=== PATIENT | female | born 2000 | race Native Hawaiian/Other Pacific Islander ===

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

== ENCOUNTER → 2020-07-10 00:01 | Outpatient (BNVA) | payer MEDICARE, MEDICAID, SELFPAY | PROVIDERS: Family Provider Pediatrics Adolescent Medicine; PCP Pediatrics Adolescent Medicine; Visit Provider Pediatrics Adolescent Medicine | DX: N39.0 Urinary tract infection, site not specified (principal); A08.4 Viral intestinal infection, unspecified; R39.89 Other symptoms and signs involving the genitourinary system | CPT/HCPCS: 80053; 81003 ==

== ENCOUNTER → 2020-08-15 15:50 | Outpatient (BNVA) | payer MEDICARE, MEDICAID, SELFPAY | PROVIDERS: Family Provider Pediatrics Adolescent Medicine; PCP Pediatrics Adolescent Medicine; Visit Provider Nurse Practitioner Women's Health | DX: E01.0 Iodine-deficiency related diffuse (endemic) goiter (principal); N92.1 Excessive and frequent menstruation with irregular cycle; N76.0 Acute vaginitis; B96.89 Other specified bacterial agents as the cause of diseases classified elsewhere; Z30.42 Encounter for surveillance of injectable contraceptive | CPT/HCPCS: 84439; 84443 ==

== ENCOUNTER → 2021-01-20 18:32 | Outpatient (BNVA) | payer MEDICARE, BC, SELFPAY | PROVIDERS: Family Provider Pediatrics Adolescent Medicine; PCP Pediatrics Adolescent Medicine; Visit Provider Nurse Practitioner Family | DX: J02.9 Acute pharyngitis, unspecified (principal) | CPT/HCPCS: 87071; 87880 ==

== ENCOUNTER → 2022-04-02 13:25 | Outpatient (BNVA) | payer MEDICARE, BC, MEDICAID, SELFPAY | PROVIDERS: Family Provider Pediatrics Adolescent Medicine; Visit Provider Nurse Practitioner Women's Health | DX: N93.9 Abnormal uterine and vaginal bleeding, unspecified (principal) | CPT/HCPCS: 81025 ==

== ENCOUNTER → 2022-09-12 12:56 | Outpatient (BNVA) | payer MEDICARE, BC, MEDICAID, SELFPAY | PROVIDERS: Family Provider Pediatrics Adolescent Medicine; Visit Provider Emergency Medicine | DX: N39.0 Urinary tract infection, site not specified (principal) | CPT/HCPCS: 81000 ==

== ENCOUNTER 2022-12-05 02:38 | Emergency (ER) | payer MEDICARE, BC, MEDICAID, SELFPAY ==
[2022-12-05 02:42] VITALS: BP 111/77; PULSE 81; RESP 18; TEMP 36.4; O2SAT 96; BMI 23.1
--- NOTE | 2022-12-05 02:43 | CTR_ITS ---
PROCEDURE INFORMATION: Exam: CT Head Without Contrast Exam date and time: 12/05/2022 2:51 AM Age: 22 years old Clinical indication: Condition or disease; Convulsions or seizures; Patient HX: Seizure prior to arrival. History of childhood seizures. TECHNIQUE: Imaging protocol: Computed tomography of the head without contrast. Radiation optimization: All CT scans at this facility use at least one of these dose optimization techniques: automated exposure control; mA and/or kV adjustment per patient size (includes targeted exams where dose is matched to clinical indication); or iterative reconstruction. Other technique: STROKE PROTOCOL was implemented. REPORTING DATA: Count of CT and Cardiac NM exams in prior 12 months: This patient has received 0 known CTs and 0 known cardiac nuclear medicine studies in the 12 months prior to the current study. COMPARISON: No relevant prior studies available. RADIATION DOSE METRICS: Total DLP (mGy-cm): 1011.78 FINDINGS: Brain: No acute intracranial hemorrhage or mass effect. No definite acute infarct by CT. MRI could be more sensitive/specific for detection, as clinically directed. Cerebral ventricles: Ventricle size is normal for age. Paranasal sinuses: Included paranasal sinuses are essentially clear. Mastoid air cells: No significant acute finding. Bones/joints: No definite acute skull fracture. Soft tissues: No significant acute finding. CT/CT head wo con* [id number] IMPRESSION: 1. No acute intracranial hemorrhage or mass effect. 2. No definite acute infarct by CT, see above. 3. Other findings discussed above. ASSESSMENT: ASPECTS (Xi Stroke Program Early CT Score) is 10.
--- NOTE | 2022-12-05 02:44 | ED_ITS ---
HPI - Seizure General: Chief Complaint: Seizure Stated Complaint: SEIZURE Time Seen by Provider: 12/05/22 02:39 Source: patient and EMS Mode of arrival: EMS Limitations: no limitations History of Present Illness: HPI Narrative: 22-year-old female history of autism mother states that she had seizures as a kid last one she had was 7 years ago she states that tonight she went to the bathroom passed out and had roughly 2 to 3-minute seizure this happened over an hour ago she is now awake and alert and her baseline she is answering my questions appropriately she denies any chest pain or headache or fever denies any vomiting or diarrhea. Associated symptoms: Deny chest pain, chills or fever(s) Review of Systems Const: Denies: fever(s), chills, body aches or change in appetite Eyes: Denies: blurry vision or eye discomfort ENMT: Denies: throat pain or dental pain Card: Denies: chest pain Resp: Denies: dyspnea GI: Denies: abdominal pain, nausea, vomiting or diarrhea : Denies: dysuria Musc: Denies: neck pain or back pain Skin/Breast: Denies: rash Neuro: Reports: seizure-like activity Psych: Denies: depression Akira/Lymph: Denies: easy bruising All/Imm: Denies: urticaria PFSH ED PFSH: Medical History Allergic rhinitis Asthma Autism Migraine No pertinent past medical history neghx: htn,dm,thyroid,dvt/pe PCP: Brad Prolonged menstruation Sleep disturbance Surgical History Hx of adenoidectomy Hx of myringotomy with tube placement x 5 Family History Other Adopted Social History Smoking and tobacco status: never smoked Physical Exam Const: COMMON NORMALS: no acute distress, patient oriented x3 and healthy appearing HENMT: COMMON NORMALS: normocephalic and atraumatic HEAD & SCALP: normocephalic and atraumatic Eye: COMMON NORMALS: Equal, round and reactive pupils present and EOMs intact bilaterally PUPIL: Yes Equal, round and reactive pupils present Neck/C-Spine: COMMON NORMALS: full ROM and supple Chest: COMMONS NORMALS: normal inspection of the chest and normal palpation of entire chest wall Resp: COMMON NORMALS: normal respiratory effort, No retractions, No use of accessory muscles and clear to auscultation bilaterally AUSCULTATION: clear to auscultation bilaterally Cardio: COMMON NORMALS: regular rate, regular rhythm and No murmurs present (Cardio) RATE: regular rate RHYTHM: regular rhythm GI: COMMON NORMALS: Normal to inspection, nondistended, normoactive bowel sounds present, Soft to palpation, non-tender and no masses PALPATION: Yes Soft to palpation Extremity: COMMON NORMALS: normal to inspection and full ROM Neuro: COMMON NORMALS: patient oriented x3, moves all extremities and no focal motor deficits Psych: COMMON NORMALS: mental status grossly normal, Normal thought process present and cooperative THOUGHT PROCESS: Normal thought process present Skin: COMMON NORMALS: no rashes or lesions noted and no wounds GENERAL SKIN EXAM: no rashes or lesions noted Course Vital Signs: Vital signs: Vital Signs Temperature 97.5 F L 12/05/22 02:42 Pulse Rate 80 12/05/22 03:47 Respiratory Rate 18 12/05/22 02:42 Blood Pressure 128/77 12/05/22 03:47 Pulse Oximetry 95 12/05/22 03:47 Oxygen Delivery Me thod 12/05/22 03:47 MDM - Seizure MDM Narrative Medical decision making narrative: Patient presents here after a fall after speaking to her father he is a different history of falling in her head and then having a short period of downtime before awakening he denies any seizure-like activity is hard to tell but likely passed out hit her head head CT here is normal blood work is normal she has been well-appearing she is stable for discharge she is to follow-up with PCP and return if worsening. Lab Data 12/05/22 02:45 12/05/22 04:00 Labs: Radiology Impressions Head CT 12/05/22 02:43 IMPRESSION: 1. No acute intracranial hemorrhage or mass effect. 2. No definite acute infarct by CT, see above. 3. Other findings discussed above. ASSESSMENT: ASPECTS (Xi Stroke Program Early CT Score) is 10. Laboratory Results WBC 15.0 10^3/uL (4.0-10.0) H 12/05/22 02:45 RBC 4.80 10^6/uL (4.1-5.3) 12/05/22 02:45 Hgb 13.9 g/dL (11.5-15.3) 12/05/22 02:45 Hct 44.0 % (37.0-47.0) 12/05/22 02:45 MCV 91.7 fl (81-99) 12/05/22 02:45 MCH 29.0 pg (28.0-34.0) 12/05/22 02:45 MCHC 31.6 g/dL (30.0-36.0) 12/05/22 02:45 RDW 12.2 % (12.1-15.1) 12/05/22 02:45 Plt Count 370 10^3/cmm (130-400) 12/05/22 02:45 MPV 9.7 fL (7.4-10.4) 12/05/22 02:45 Lymph % (Auto) Not Reportable 12/05/22 02:45 [place] % (Auto) Not Reportable 12/05/22 02:45 Lymph # (Auto) Not Reportable 12/05/22 02:45 [place] # (Auto) Not Reportable 12/05/22 02:45 Total Counted 100 (0-100) 12/05/22 02:45 Atypical Lymphs % 20.0 % (0-5) H 12/05/22 02:45 Absolute Neutrophils 7.2 10^3/cmm (1.4-6.5) H 12/05/22 02:45 Segmented Neutrophils 48 % 12/05/22 02:45 Abs Segm Neuts (Man) 7.2 10/cmm (1.6-7.1) H 12/05/22 02:45 Band Neutrophils 0.0 % 12/05/22 02:45 Abs Band Neuts (Man) 0.0 10^3/cmm (0.0-1.2) 12/05/22 02:45 Absolute Lymphocytes 7.1 10^3/cmm (1.2-3.4) H 12/05/22 02:45 Lymphocytes (Manual) 27 % 12/05/22 02:45 Monocytes (Manual) 4.0 % 12/05/22 02:45 Absolute Monocytes 0.6 10^3/cmm (0.1-0.6) 12/05/22 02:45 Eosinophils (Manual) 1 % 12/05/22 02:45 Absolute Eosinophils 0.1 10^3/cmm (0.0-0.7) 12/05/22 02:45 Basophils (Manual) 0.0 % 12/05/22 02:45 Absolute Basophils 0.0 10^3/cmm (0.0-0.2) 12/05/22 02:45 Toxic Granulation 1+ H 12/05/22 02:45 Platelet Estimate Normal (Normal) 12/05/22 02:45 Macrocytosis 1+ H 12/05/22 02:45 Sodium 139 mmol/L (136-145) 12/05/22 04:00 Potassium 4.3 mmol/L (3.5-5.1) 12/05/22 04:00 Chloride 105 mmol/L (98-107) 12/05/22 04:00 Carbon Dioxide 24 mmol/L (22-29) 12/05/22 04:00 Anion Gap 14.3 (5-19) 12/05/22 04:00 BUN 10 mg/dL (6-20) 12/05/22 04:00 Creatinine 0.9 mg/dL (0.5-0.9) 12/05/22 04:00 GFR Calculation 94.7 mL/min (90-130) 12/05/22 04:00 Glucose 115 mg/dL (65-115) 12/05/22 04:00 Calculated Osmolality 288 mOsm/kg (285-295) 12/05/22 04:00 Calcium 9.2 mg/dL (8.5-10.5) 12/05/22 04:00 Total Bilirubin 0.2 mg/dL (0.15-1.2) 12/05/22 04:00 AST 14 U/L (0-32) 12/05/22 04:00 ALT 10 U/L (0-33) 12/05/22 04:00 Alkaline Phosphatase 93 U/L (35-105) 12/05/22 04:00 Total Protein 7.2 g/dL (6.6-8.7) 12/05/22 04:00 Albumin 4.1 g/dL (3.5-5.2) 12/05/22 04:00 Globulin 3.1 g/dL (1.3-4.6) 12/05/22 04:00 HCG, Qual Negative (Negative) 12/05/22 02:45 Discharge Plan Discharge Patient Disposition: Home Clinical Impression: Fall, Closed head injury Condition: Stable Prescriptions: No Action focus factor PO [id number] 100 mg-3 mcg- 200 mcg-1 mg tablet,delayed release (DR/EC) PO medroxyprogesterone [Depo-Provera] 150 mg/mL syringe 150 mg IM .every 10-12 weeks Qty: 1 4RF clonidine HCl 0.2 mg tablet 0.2 mg PO .qhs Qty: 90 1RF Discharge Orders: Discharge ED (Routine); Ordered 12/05/22 Ordered By: Roshan Varghese Referrals: Mariola Feliciano MD [Physician] - 1-3 days Discharge Diet: Advance as tolerated Discharge Activity: Resume usual activity Patient Instructions: Head Injury (ED) Coding Level of Care Code ED Plunger Shovel Operator for Darell Triana
[2022-12-05 02:52] LABS: Hemoglobin 13.9 g/dL (11.5-15.3); Mean Corpuscular HGB Conc 31.6 g/dL (30.0-36.0); Mean Corpuscular Volume 91.7 fl (81-99); Mean Platelet Volume 9.7 fL (7.4-10.4); Platelet Count 370 10^3/cmm (130-400); Red Cell Distribution Width 12.2 % (12.1-15.1)
[2022-12-05] MEDS: levETIRAcetam 500 mg Tablet 750 MG PO (02:59)
[2022-12-05 03:09] LABS: HCG, Serum Qual Negative (Negative)
[2022-12-05 03:28] LABS: Absolute Eosinophils 0.1 10^3/cmm (0.0-0.7); Absolute Segmented Neutrophil 7.2 10/cmm (1.6-7.1); Eosinophils 1 %; Lymphocytes 27 %; Lymphocytes Absolute 7.1 10^3/cmm (1.2-3.4); Monocytes Absolute 0.6 10^3/cmm (0.1-0.6); Segmented Neutrophils 48 %; Total Cells Counted 100 (0-100)
[2022-12-05 03:29] LABS: Absolute Neutrophil 7.2 10^3/cmm (1.4-6.5); Platelet Estimate Normal (Normal); Toxic Granulation 1+
[2022-12-05 03:32] LABS: Macrocytosis 1+
[2022-12-05 03:47] VITALS: BP 128/77; PULSE 80; O2SAT 95
[2022-12-05 04:23] LABS: Alanine Aminotransferase 10 U/L (0-33); Albumin Level 4.1 g/dL (3.5-5.2); Alkaline Phosphatase 93 U/L (35-105); Anion Gap 14.3 (5-19); Aspartate Amino Transferase 14 U/L (0-32); Blood Urea Nitrogen 10 mg/dL (6-20); Calcium 9.2 mg/dL (8.5-10.5); Carbon Dioxide 24 mmol/L (22-29); Chloride 105 mmol/L (98-107); Globulin 3.1 g/dL (1.3-4.6); Glomerular Filtration Rate 94.7 mL/min (90-130); Glucose 115 mg/dL (65-115); Osmolality Calculated 288 mOsm/kg (285-295); Potassium 4.3 mmol/L (3.5-5.1); Sodium 139 mmol/L (136-145); Total Bilirubin 0.2 mg/dL (0.15-1.2); Total Protein 7.2 g/dL (6.6-8.7)
[2022-12-05 04:33] VITALS: BP 128/77; PULSE 88; RESP 16
== END 2022-12-05 04:37 | disposition home or self-care (01) ==
PROVIDERS: Emergency Provider Emergency Medicine; PCP Family Medicine
DX: S09.8XXA Other specified injuries of head, initial encounter (principal); F84.0 Autistic disorder; W18.39XA Other fall on same level, initial encounter
CPT/HCPCS: 70450; 80053; 84703; 85007; 85025; 99284

== ENCOUNTER → 2023-08-07 11:18 | Outpatient (BNVA) | payer MEDICARE, BC, MEDICAID, SELFPAY | PROVIDERS: PCP Family Medicine; Visit Provider Nurse Practitioner | DX: R39.9 Unspecified symptoms and signs involving the genitourinary system (principal) | CPT/HCPCS: 81000 ==

== ENCOUNTER → 2024-02-16 10:36 | Outpatient (BNVA) | payer MEDICARE, BC, SELFPAY | PROVIDERS: PCP Family Medicine; Visit Provider Family Medicine | DX: R30.0 Dysuria (principal); N39.3 Stress incontinence (female) (male) | CPT/HCPCS: 81000; 87086 ==

== ENCOUNTER → 2024-07-29 15:08 | Outpatient (BNVA) | payer MEDICARE, BC, MEDICAID, SELFPAY | PROVIDERS: PCP Family Medicine; Visit Provider Nurse Practitioner Women's Health | DX: R30.0 Dysuria (principal); E01.0 Iodine-deficiency related diffuse (endemic) goiter | CPT/HCPCS: 84315; 84439; 84443; 84481; 87086 ==

== ENCOUNTER → 2024-12-20 15:47 | Outpatient (BNVA) | payer MEDICARE, OTHER, SELFPAY | PROVIDERS: PCP Family Medicine; Visit Provider Family Medicine | DX: R30.0 Dysuria (principal); Z13.6 Encounter for screening for cardiovascular disorders | CPT/HCPCS: 81000; 87086 ==

== ENCOUNTER → 2024-12-22 09:16 | Outpatient (BNVA) | payer MEDICARE, OTHER, SELFPAY | PROVIDERS: PCP Family Medicine; Visit Provider Family Medicine | DX: Z13.6 Encounter for screening for cardiovascular disorders (principal) | CPT/HCPCS: 80053; 80061; 85025 ==

== ENCOUNTER 2025-04-07 13:04 | Emergency (ER) | payer MEDICARE, OTHER, MEDICAID, SELFPAY ==
--- OUTSIDE RECORDS SUMMARY | 2013-05-02 05:40 | XMS_ITS | Continuity of Care Document ---
Author Organization [facility] Address [address] [facility] [address] [place] [address] Phone Care Team Providers Care Leathersmith Name Role Phone Unavailable Unavailable Unavailable Advance Directives Directive Yes / No Effective Date File Name No Information Encounters Encounter Description Practice Location Reason(s) For Visit Diagnoses Date Provider Providers Copied on Encounter [facility], [address], [address], tel:[phone] [place] [facility] No Information 3 No Information Referring Provider: DEDRICK ALVARADO, [address] [place] [address], [address]. tel:[phone] Family History Family Member Type Diagnosis Age At Onset No Information Payers Payer name Insurance type Covered green party ID Authoriza tisree(s) [employer] [id number] Social History Type Description Quantity Date Captured Comments Sex Female Smoking Status No Information Chief Complaint And Reason For Visit No Information History Of Present Illness Encounter Date Complaint History Of Prese nt Illness No Information Instructions Date Instruction Additional Infor mation No Information Assessments Type Assessment Date No Information
--- OUTSIDE RECORDS SUMMARY | 2017-11-26 02:30 | XMS_ITS | Continuity of Care Document ---
Author Organization [facility] Address [address] [id number] [address] Phone Care Team Providers Care Delivery Clerk Name Role Phone Oumar UMERLeonardo Klaus Unavailable Unavailable Allergies, Adverse Reactions, Alerts Substance Reaction Status Criticality No Known allergies Medications Medication Instructions Dosage Effective Dates (start - stop) Status Comments ibuprofen 100 mg/5 mL oral suspension take 30 milliliter by oral route every 6 hours as needed with food for pain from oral surgery - Active Vyvanse 10 mg capsule - Active Procedures Procedure Date Intraoral Periapical First Film Intraoral Periapical Each Additional Film Intraoral Periapical Each Additional Film Intraoral Periapical Each Additional Film Intraoral Periapical Each Additional Film Comprehensive Oral Evaluatio n New Or Established Prophylaxis Adult Resin-Based Composite One Surface, Posterior Resin-Based Composite Two Surfaces, Posterior Resin-Based Composite Two Surfaces, Posterior Resin-Based Composite One Surface, Posterior Amalgam One Surface, Primary Or Permanent Surgical Removal Of Erupted Tooth Requir ing Elevat Removal Of Impacted Tooth Soft Tissue Removal Of Impacted Tooth Soft Tissue Removal Of Impacted Tooth Soft Tissue Removal Of Impacted Tooth Soft Tissue Treatment Plan Complete EDR Approval Note Oral Hygiene Instructions Caries Moderate Risk Exempt From Sealant Measure Bitewings Two Films Intraoral Periapical First Film Intraoral Periapical Each Additional Film Intraoral Periapical Each Additional Film Intraoral Periapical Each Additional Film Panoramic Film Limited Oral Evaluation Problem Focused Consultation Diagnostic Service Provided By [place] EDR Approval Note Advance Directives Directive Yes / No Effective Date File Name No Information Encounters Encounter Description Practice Location Reason(s) For Visit Diagnoses Date Provider Providers Copied on Encounter [facility], [id number], [id number], tel:[phone] [facility] Encounter for dental exam and cleaning w/o abnormal findings Oumar Enrique. [address] [place], [address], [place]. tel:[phone] Referring Provider: Klaus Munoz, [address] [place], [address]. tel:[phone] [facility], [id number], [id number], tel:[phone] [facility] Encounter for dental exam and cleaning w/o abnormal findings Oumar Enrique. [address] [place], [address], [place]. tel:[phone] Referring Provider: Klaus Munoz, [address] [place], [address]. tel:[phone] Family History Family Member Type Diagnosis Age At Onset No Information Payers Payer name Insurance type Covered alliance party ID Authorlalo minor(s) D [facility] Medicaid CI [id number] Social History Type Description Quantity Date Captured Comments Alcohol Use Details No Caffeine Use Details Unknown Tobacco Use Status No Information Smoking Status No Information Sex Female Chief Complaint And Reason For Visit No Information Reason For Referral Reason For Referral No Information History Of Present Illness Encounter Date Complaint History Of Prese nt Illness No Information Functional Status Date Functional Assessmen t No Information Instructions Date Instruction Additional Jose Davidr lyle Lifestyle education Related to D ental Examination Assessments Type Assessment Date No Information Patient Care Teams Name Effective Dates (start - stop) Status Members No Information
--- OUTSIDE RECORDS SUMMARY | 2025-04-07 13:08 | XMS_ITS | Clinical Summary ---
Author Organization [facility] Address [address] [place] [address] Care Team Providers Care Clean Up Supervisor Name Role Phone Mariola Feliciano MD Primary Care Provider Allergies Active Allergy Reactions Criticality Noted Date Comments Latex Other (See Comments) 11/25/2017 Skin blisters with latex bandaids Medications lisdexamfetamin e (VYVANSE) 40 mg Oral capsule Take 50 mg by mouth daily patient companion 1 a.m.. Active cloNIDine (CATAPRES) 0.1 mg Oral tablet Take 1 Tab by mouth daily at bedtime. 30 Tab 1 3 Active norethindrone Ac-Eth estradiol (MICROGESTIN ,) 1-20 mg-mcg tablet Take 1 Tablet by mouth daily. Active cetirizine (ZyrTEC) 10 mg tablet Take 10 mg by mouth daily. Active OLIVE LEAF EXTRACT ORAL Take by mouth 0.5 teaspoon daily . Active ascorbic acid, vitamin C, (VITAMIN C) 500 mg tablet Take 500 mg by mouth daily. Active OTHER Bioactive silver hydrosol liquid PRN one teaspoon daily PRN Immunity support . Active omega-3 fatty acids-fish oil 300-1,000 mg Capsule Take by mouth daily. Active multivitamins with minerals (HAIR,SKIN AND NAILS) Tablet Take 1 Tablet by mouth daily. Active Active Problems Problem Noted Date Diagnosed Date Recurrent otitis media of both ears 04/12/2015 Dysfunction of both eustachian tubes 04/12/2015 Migraine 05/18/2013 Spell of loss of consciousness 05/18/2013 Immunizations Immunization Administration Dates Next Due (ADACEL/BOOSTRIX)(10 YR UP) TDAP VACCINE, 0.5ML, IM 01/23/2014 (GARDASIL)(9-45 YRS) HUMAN P APILLOMAVIRUS VACCINE, TYPES 6, 11, 16, 18, QUADRIVALENT (4VHPV), 3 DOSE, IM 06/07/2014 Influenza Vaccine High Dose 65+ Yrs IM 7 Meningococcal ACWY Vaccine, Unspecified Formulat ion 03/30/2017 Social History Tobacco Use Types Packs/Day Years Used Date Smoking Tobacco: Never Smokeless Tobacco: Never Alcohol Use Standard Drinks/Week Comments No 0 (1 standard drink = 0.6 oz pur e alcohol) Comments No Sex and Gender Information Value Date Recorded Sex Assigned at Not on file Legal Sex Female 3:11 PM CDT Gender Identity Not on file Sexual Orientation Not on file Last Filed Vital Signs Vital Sign Reading Time Taken Comments Blood Pressure 120/79 11/26/2017 10:20 AM PAYROLL EXAMINER Pulse 75 11/26/2017 10:35 AM PAYROLL EXAMINER Temperature 36.7 C (98.1 F) 11/26/2017 10:20 AM PAYROLL EXAMINER Respiratory Rate 22 11/26/2017 10:35 AM PAYROLL EXAMINER Oxygen Saturation 100% 11/26/2017 10:35 AM PAYROLL EXAMINER Inhaled Oxygen Concentration - - Weight 52.6 kg (116 lb) 11/26/2017 6:36 AM PAYROLL EXAMINER Height 160 cm (5' 3 ) 11/25/2017 10:37 AM PAYROLL EXAMINER Body Mass Index 20.55 11/25/2017 10:37 AM PAYROLL EXAMINER Plan of Treatment Health Maintenance Due Date Last Done Comments HPV VACCINES (2 - 2-dose series) 12/05/2014 06/07/20 14 HEPATITIS B VACCINES (1 of 3 - 19+ 3-dose series) 11/2018 CERVICAL CANCER SCREENING 2021 HPV/Cotest (21-29) 2021 PAP SMEAR 2021 DTAP/TDAP/TD VACCINES (2 - Td or Tdap) 01/24/2024 INFLUENZA VACCINE (#1) 2024 09/21/2017 Insurance [facility] Advance Directives For more information, please contact: [phone] * Full Code (Latest Code Status on File) Date Activated Date Inactivated Comments 11/26/2017 9:48 AM 11/26/2017 1:41 PM * Full Code Date Activated Date Inactivated Comments 11/26/2017 7:03 AM 11/26/2017 9:48 AM Care Teams Clean Up Supervisor Relationship Specialty Start Date End Date Mariola Feliciano MD [address] [place] [address] [place] [id number] PCP - General Pediatrics 05/18/13
--- OUTSIDE RECORDS SUMMARY | 2025-04-07 13:08 | XMS_ITS | Data Portability ---
Author Organization [facility] [place] [facility] Address [address] [place] [address] [place] [address] Assessment Encounter Date Assessment Date Assessment LastModified by Organization Details LastModified Time 05/18/2023 05/18/2023 Discussed medication and treatment. Take medications as prescribed. Must treat all pets in the home to prevent re-infection. Instructed on good hand washing. Monitor of other family members with similar sx. Instructed to wash and cleans home and all bedding/clothing . F/U PRN with walk-in clinic. F/U with PCP to be sure sx have resolved. Patient and his mother verbalizes understanding and agreement with this plan of care. Will call with any questions or concerns. [email or web address] Not available 05/19/2023 13:00:54 08/09/2024 08/09/2024 Document scribed by Ralph Yuan, Virology Teacher. I was present during interview and exam. I have reviewed and agree with above documentation. Dr. Klaus Guaman. [email or web address] Not available 08/09/2024 16:30:44 Plan of Treatment Reminders Order Date Submit Date Provider Last Modified By Organization Details Last Modified Time Details Appointments None recorded. Lab None recorded. Referral None recorded. Procedures None recorded. Surgeries None recorded. Imaging None recorded. Medication Orders ketoconazol e 2 % topical cream 2022 023 [email or web address] [id number], [address], [place], [phone], 16:00:02 Patient TargetsNo targets recorded. Patient InstructionsNo instructions recorded. Reason for Referral None Reported. Results Created Date Observation Date Name Description Value Unit Range Abnormal Flag Note LastModifiedBy Organization Detail LastModifiedTime 07/29/20 24 07/29/2024 TSH, serum or plasm a TSH 2.35 Not Available [address], [address], 08/09/2024 16:36:05 07/29/20 24 07/29/2024 TSH, serum or plasm a free T4 1.17 Not Available [address], [address], 08/09/2024 16:36:05 07/29/20 24 07/29/2024 TSH, serum or plasm a free T3 3.3 Not Available [address], [address], 08/09/2024 16:36:05 Result Notes None recorded. Problems Name Problem SNOMED Code Status Onset Date Resolution Date Notes Provider Name and Address Organization Details Recorded Time Autism spectrum disorder 09780714 Active 2023 Brenda royal [facility] 4 16:15:58 Chronic constipation 012487167 Active 2023 Brenda royal [facility] 4 16:16:22 Depressive disorder 66398989 Active 2023 Ralph royal [facility] 4 16:31:18 Cerebral palsy 128895658 Active 2023 Ralph royal [facility] 4 16:31:18 Problem Notes None recorded. Procedures Surgical History Date Name Laterality Status Provider Name and Address Organization Details Recorded Time Adenoid Surgery completed Brenda Lang [facility] 08/09/2024 16:17:45 Imaging Results None recorded. Procedure Notes None recorded. Medical Equipment None Reported. Allergies No known drug allergies Medications Name Sig Start Date Stop Date Status Note LastModified by Organization Details LastModified Time triazolam 0.25 mg tablet TAKE 2 TABLETS BY MOUTH 1 1/2 HOURS BEFORE APPOINTME NT active Not Available Not Available No t Available cetirizine 10 mg tablet TAKE 1 TABLET BY MOUTH DAILY active Not Available Not Available No t Available fluconazole 150 mg tablet TAKE 1 TABLET BY MOUTH EVERY 3 DAYS FOR 2 DOSES. MAY REPEAT SECOND DOSE 72 HOURS AFTER FOR 1 DOSE IF SYMPTOMS PERSIST 08/09 completed Not Available Not Available Not Available metronidazo le 500 mg tablet TAKE 1 TABLET BY MOUTH TWICE DAILY 08/09 completed Not Available Not Available Not Available clonidine HCl 0.2 mg tablet TAKE 1 TABLET BY MOUTH EVERY DAY AT BEDTIME active Not Available Not Available No t Available amoxicillin 875 mg tablet TAKE 1 TABLET BY MOUTH TWICE DAILY FOR 7 DAYS 08/09 completed Not Available Not Available Not Available docusate sodium 100 mg capsule Take 1 capsule every day by oral route. active Not Available Not Available No t Available ketoconazol e 2 % topical cream APPLY TOPICALLY TO THE AFFECTED AREA EVERY DAY FOR 4 TO 6 WEEKS 08/09 completed Not Available Not Available Not Available amoxicillin 875 mg-potassiu m clavulanate 125 mg tablet TAKE 1 TABLET BY MOUTH TWICE DAILY FOR 7 DAYS 08/09 completed Not Available Not Available Not Available medroxyprog esterone 150 mg/mL intramuscul ar syringe ADMINISTE R 1 ML IN THE MUSCLE EVERY 10 TO 12 WEEKS active Not Available Not Available No t Available Vitals Date Recorded Body weight Oxygen saturation Oxygen saturation in Arterial blood by Pulse oximetry Heart rate Respiratory rate Body temperature Systolic And Diastolic Provider Name and Address Organization Details Last Updated DateTime 3 68114.7 8 g 98 % 98 % 67 /min 19 /min 97.5 [degF] 135/73 mm[Hg] NEGRITO VAUGHN [facility] 3 13:53:52 Date Recorded Body height Body mass index (BMI) Body weight Oxygen saturation Oxygen saturation in Arterial blood by Pulse oximetry Heart rate Respiratory rate Systolic And Diastolic Provider Name and Address Organization Details Last Updated DateTime 4 162.56 cm 29.2 kg/m2 65515.1 g 98 % 98 % 93 /min 18 /min 130/70 mm[Hg] Brenda Lang [facility] [place] 16:04:06 Social History None recorded. Functional Status None recorded. Mental Status None recorded. Family History Nothing Reported. Medical History No medical history recorded. Gynecological HistoryNo gynecological history recorded. Obstetrics History GPAL:G 0 P 0 0 0 0 Past Encounters Encounter ID Performer Location Encounter Start Date Encounter Closed Date Diagnosis/Indication Diagnosis SNOMED-CT Code Diagnosis ICD10 Code Diagnosis Note [id number] WILLIAM KIRK [facility] ([facility]) [address] [place] [phone] 05/18/2023 13:38:12 05/23/2023 15:28:37 Tinea pedis 2806092 B35.3 [id number] Klaus Guaman DO [facility] ([facility]) [address] [place] [address] 08/09/2024 15:41:59 08/10/2024 11:30:24 Depressive disorder 12729046 F32.A Previously on prescripti on antidepres nena, now taking OTC stress tab from [employer]. Cerebral palsy 734977765 G80.9 Health Concerns Section Related Observation LastModified by Organization Detai ls LastModified Time None Recorded Concern Status LastModified by Organization Details LastModified Time None Recorded Advance Directives Directive None Recorded Payers Insurance Date Sequence Insurance Name Policy Number Policy Bhandari Covered Member ID Bhandari Member ID Guarantor Name 09/13/2024 1 [place] [employer] [id number] [employer] 11/07/2024 2 [place] [id number] [employer] [id number] [employer] 11/07/2024 [place] - [id number] (MEDICARE) [employer] [id number] [employer] 07/04/2023 2 UNSPECIFIED REMIT PAYOR [employer] 12/23/2024 2 [facility] [id number] [employer] [id number] [employer] 12/23/2024 2 [place] [id number] [employer] [id number] [employer] Notes Date Note Type Note Provider Name and Address Organization Details Recorded Time 05/18/2023 text/html Rash/Skin LesionReported bypatient.Location:[facility] Quality:itchy;painful; red Severity:moderate; worsening Duration:has noted for 3-4 weeks Timing:abrupt Context:scratching Associated Symptoms:no fever; no cold symptoms; no nausea; no vomiting; no diarrhea; no fatigue WILLIAM KIRK [address] [place] [address], [phone], [facility] [place] 05/19/2023 13:01:04 08/09/2024 text/html Annual WellnessReported bypatient.Diet and Nutrition:healthy diet Fracture Risk:no history of fractures; no recent explained fracture; no sudden unexplained fractures; no previous musculoskeletal injuries Physical Activity:exercises on a regular basis; recent increase in physical activity; good physical condition Additional Lifestyle Factors:no tobacco use; no alcohol intake Depression Risk:never feels sad, empty, or tearful; no loss of interest in activities; no significant changes in weight; no sleep disturbances or insomnia; no agitation; no loss of energy; no feelings of worthlessness or guilt; no thoughts of suicide; no history of depression; no history of mood disorders Hearing:no loss of hearing Vision:no vision problems; wears corrective lenses Pt presents to establish care, previous PCP was Dr. Salinas. She is here today with her adoptive mother, was born to biological mother who was a Heroin and LSD addict. She was diagnosed with Failure to Thrive as an .She has been diagnosed with Autism, Mild Cerebral Palsy, Depression. Previous surgeries: ear tubes placed 3 or 4 times, she sees Dr. Brandon and has ears cleaned every 2 months, h/o recurrent ear infections.adenoids removed over 5 years agowisdom teeth She is currently on Depo shot for menstrual regulation/ control, just updated this at the [facility] yesterday. Her first period lasted 45 days straight, family decided preventing periods from happening would be best for her. The [facility] also recently kandy lab concerned for Goiter and checked her urine, treated for UTI, took her last dose of abx 2 nights ago. Mother unsure specific lab results.Lab per [facility] 07/29/24:TSH 2.35, Free T4 1.17, Free T3 3.3. Scheduled to see her Dentist ( mother unsure the name) next week, needing 4 fillings. Having some difficulty sleeping at night, using Melatonin and Clonidine.Previously diagnosed with Depression, has been prescribed antidepressant in the past, now taking OTC stress tab from the [employer] store each am. She cannot read. She dose know the alphabet and can write down animal names.Wearing glasses, seeing Dr. Torres and [facility] for eye care. Mother reports she has to monitor pt's food intake, she wants to eat every hour to 2 hours d/t always feels hungry Diet is a variety of foods, including fruits and vegetables.Not taking daily vitamins at this time, had been taking One A Day vitamins until she ran out.Not taking any fiber supplements, however she does take a stool softener. Current daily meds: cetirizine, clonidine, depo shot, calcium supplement, and magnesium supplement, and stool softener daily Pt participates in Bingo with others, also an art [place] on the [place] that she [place], currently on hold d/t working out payment and participation. Klaus Guaman, DO [address] [place] [address], [phone], [facility] [place] 08/09/2024 23:30:11 OBGyn Episode No OBEpisode recorded.
--- OUTSIDE RECORDS SUMMARY | 2025-04-07 13:08 | XMS_ITS | Clinical Summary ---
Author Organization [facility] Address [address] Attn: [place] [address] Care Team Providers Care Surveyor Helper Name Role Phone Mariola Feliciano MD Primary Care Provider Allergies Active Allergy Reactions Criticality Noted Date Comments Latex Other (See Comments) 11/25/2017 Skin blisters with latex bandaids Medications norethindrone Ac-Eth estradiol 1-20 mg-mcg tablet Take 1 Tablet by mouth daily. 8 Active cetirizine (ZyrTEC) 10 mg tablet Take 10 mg by mouth daily. 8 Active omega-3 fatty acids-fish oil 300-1,000 mg Capsule Take by mouth daily. 8 Active multivitamins with minerals Tablet Take 1 Tablet by mouth daily. 8 Active OLIVE LEAF EXTRACT ORAL Take by mouth 0.5 teaspoon daily . 8 Active OTHER Bioactive silver hydrosol liquid PRN one teaspoon daily PRN Immunity support . 8 Active ascorbic acid, vitamin C, (VITAMIN C) 500 mg tablet Take 500 mg by mouth daily. 8 Active Active Problems Problem Noted Date Diagnosed [...] = 0.6 oz pur e alcohol) Comments Unknown Sex and Gender Information Value Date Recorded Sex Assigned at Not on file Legal Sex Female 5:02 AM PRECIPITATION EQUIPMENT TENDER Gender Identity Not on file Sexual Orientation Not on file Last Filed Vital Signs Vital Sign Reading Time Taken Comments Blood Pressure 120/79 11/26/2017 10:20 AM PRECIPITATION EQUIPMENT TENDER Pulse 75 11/26/2017 10:35 AM PRECIPITATION EQUIPMENT TENDER Temperature 36.7 C (98.1 F) 11/26/2017 10:20 AM PRECIPITATION EQUIPMENT TENDER Respiratory Rate 22 11/26/2017 10:35 AM PRECIPITATION EQUIPMENT TENDER Oxygen Saturation - - Inhaled Oxygen Concentration - - Weight 52.6 kg (116 lb) 11/26/2017 6:36 AM PRECIPITATION EQUIPMENT TENDER Height 160 cm (5' 3 ) 11/25/2017 10:37 AM PRECIPITATION EQUIPMENT TENDER Body Mass Index 20.55 11/25/2017 10:37 AM PRECIPITATION EQUIPMENT TENDER Plan of Treatment Health Maintenance Due Date Last Done Comments HPV VACCINES (2 - 2-dose series) 12/05/2014 06/07/20 14 HEPATITIS B VACCINES (1 of 3 - 19+ 3-dose series) 11/2018 CERVICAL CANCER SCREENING 2021 HPV/Cotest (21-29) 2021 PAP SMEAR 2021 DTAP/TDAP/TD VACCINES (2 - Td or Tdap) 01/24/2024 INFLUENZA VACCINE (#1) 2025 09/21/2017 Care Teams Surveyor Helper Relationship Specialty Start Date End Date Mariola Feliciano MD [address] [place] [phone] PCP - General Pediatrics 05/18/13
[2025-04-07 13:09] VITALS: BP 130/93; PULSE 110; RESP 16; TEMP 36.3; O2SAT 96
--- NOTE | 2025-04-07 14:46 | ED_ITS ---
HPI - Neck Pain/Injury General: Chief Complaint: Neck Pain/Injury Stated Complaint: neck pain Time Seen by Provider: 04/07/25 14:13 History of Present Illness: 25-year-old female presents emergency ro om with her guardian complaining of right-sided neck pain that she woke up with this morning. She is complaining of stiffness in the neck there is no radiation of pain into the arm. No history of trauma. Patient states that she thinks she just slept on it wrong. No previous neck surgery or injuries Related Data Home Medications ?Medication ?Instructions ?Recorded ?Confirmed WILLIAM 100 mg-theanine 100 cap PO 12/20/24 01/23/25 mg-ashwagandha extract 225 mg capsule Previous Rx's ?Medication ?Instructions ?Recorded medroxyprogesterone 150 mg/mL 150 mg IM .every 10-12 w eeks #1 mL 07/29/24 intramuscular syringe (Depo-Provera) cetirizine 10 mg capsule (Zyrtec) 10 mg PO DAILY 90 da ys #90 caps 12/14/24 clonidine HCl 0.2 mg tablet 0.2 mg PO .qhs #90 tabs diclofenac sodium 75 mg 75 mg PO Q12H PRN pain #20 t abs 04/07/25 tablet,delayed release tizanidine 4 mg tablet 4 mg PO Q6H PRN muscle spast icity 04/07/25 #20 tabs Allergies Allergy/AdvReac Type Severity Reaction Status Date / Time No Known Allergies Allergy Verified 04/07/25 13:13 Review of Systems Const: Denies: fever(s) or chills Card: Denies: chest pain Resp: Denies: dyspnea GI: Denies: abdominal pain : Denies: dysuria, urinary frequency or urinary urgency Musc: Denies: neck pain or back pain Skin/Breast: Denies: rash PFSH ED PFSH: Medical History URI (upper respiratory infection) Psychiatric care Prolonged menstruation No pertinent past medical history neghx: htn,dm,thyroid,dvt/pe PCP: Brad Latif Asthma Allergic rhinitis Sleep disturbance Autism Surgical History Hx of myringotomy with tube placement x 5 Hx of adenoidectomy Family History Other Adopted Social History Smoking and tobacco/nicotine status: never used tobacco/nicotine Substance/Drug Use: never Physical Exam Const: GENERAL APPEARANCE: cooperative ORIENTATION/CONSCIOUSNESS: Yes awake HENMT: COMMON NORMALS: normocephalic, atraumatic and hearing grossly normal bilaterally HEAD & SCALP: normocephalic and atraumatic Resp: COMMON NORMALS: normal respiratory effort, No retractions, No use of accessory muscles and clear to auscultation bilaterally AUSCULTATION: clear to auscultation bilaterally Cardio: COMMON NORMALS: regular rate, regular rhythm and No murmurs present (Cardio) RATE: regular rate RHYTHM: regular rhythm Extremity: COMMON NORMALS: normal to inspection, capillary refill normal, no clubbing, cyanosis or edema, no calf tenderness and no pedal edema Skin: COMMON NORMALS: no rashes or lesions noted GENERAL SKIN EXAM: no rashes or lesions noted Course Vital Signs: Vital signs: Vital Signs Temperature 97.4 F L 04/07/25 13:09 Pulse Rate 110 H 04/07/25 13:09 Respiratory Rate 16 04/07/25 13:09 Blood Pressure 130/93 04/07/25 13:09 Pulse Oximetry 96 04/07/25 13:09 Oxygen Delivery Me thod Room Air 04/07/25 13:09 MDM - Neck Pain/Injury Medical Decision Making Patient presents with a positional torticollis due to positioning while sleeping. Improved with medications given discharge home with diclofenac and tizanidine to use as needed No radiology studies performed this visit Discharge Plan Discharge Patient Disposition: Home Clinical Impression: Torticollis Condition: Stable Prescriptions: New tizanidine 4 mg tablet 4 mg PO Q6H PRN (Reason: muscle spasticity) Qty: 20 0RF Rx Instructions: do not exceed 3 doses per 24 hrs diclofenac sodium 75 mg tablet,delayed release (DR/EC) 75 mg PO Q12H PRN (Reason: pain) Qty: 20 0RF No Action medroxyprogesterone [Depo-Provera] 150 mg/mL syringe 150 mg IM .every 10-12 weeks Qty: 1 4RF GXVR-qnxywaoo-qsvultgrhdl xt 100-100-225 mg capsule PO clonidine HCl 0.2 mg tablet 0.2 mg PO .qhs Qty: 90 1RF Zyrtec 10 mg capsule 10 mg PO DAILY 90 Days Qty: 90 3RF Discharge Orders: Discharge ED (Routine); Ordered 04/07/25 Ordered By: Agustin Swenson Referrals: Saira Salinas DO [Primary Care Provider, Family Practice] Discharge Diet: Usual diet Discharge Activity: Increase activity as tolerated Patient Instructions: Spasmodic Torticollis (ED), Opioid Safety, Pain Managem ent, Patient Portal & Shelia Instructions Activity Restrictions/Additional Instructions: Thank you for choosing [facility] for your healthcare needs today. It is very important that you follow up as instructed or that you return to the Emergency Department should you have concerns or if your condition changes or worsens in any way. Print Language: Kiswahili Coding Level of Care Code ED Expanding Machine Operator for Darell Triana
== END 2025-04-07 15:15 | disposition home or self-care (01) ==
PROVIDERS: Emergency Provider Family Medicine; PCP Family Medicine
DX: M43.6 Torticollis (principal)
CPT/HCPCS: 96372; 96374; 99284; J1100; J1885

== ENCOUNTER → 2025-06-30 11:58 | Outpatient (BNVA) | payer MEDICARE, OTHER, MEDICAID, SELFPAY | PROVIDERS: PCP Family Medicine; Visit Provider Family Medicine | DX: N89.8 Other specified noninflammatory disorders of vagina (principal) | CPT/HCPCS: 81513; 87070; 87205; 87481; 87491; 87591; 87661 ==

== ENCOUNTER 2025-08-16 18:48 | Emergency (ER) | payer MEDICARE, MEDICAID, SELFPAY ==
[2025-08-16 18:48] VITALS: BP 165/115; PULSE 109; RESP 16; TEMP 37.1; O2SAT 97
--- OUTSIDE RECORDS SUMMARY | 2025-08-16 18:59 | XMS_ITS | Clinical Summary ---
Author Organization [facility] Address [address] [place] [address] Care Team Providers Care Pattern Shop Supervisor Name Role Phone Mariola Feliciano MD Primary Care Provider Allergies Active Allergy Reactions Criticality Noted Date Comments Latex Other (See Comments) 11/25/2017 Skin blisters with latex bandaids Medications lisdexamfetamin e (VYVANSE) 40 mg Oral capsule Take 50 mg by mouth daily director of blood 1 a.m.. Active cloNIDine (CATAPRES) 0.1 mg [...] Comments Blood Pressure 120/79 11/26/2017 10:20 AM METAL WELDER Pulse 75 11/26/2017 10:35 AM METAL WELDER Temperature 36.7 C (98.1 F) 11/26/2017 10:20 AM METAL WELDER Respiratory Rate 22 11/26/2017 10:35 AM METAL WELDER Oxygen Saturation 100% 11/26/2017 10:35 AM METAL WELDER Inhaled Oxygen Concentration - - Weight 52.6 kg (116 lb) 11/26/2017 6:36 AM METAL WELDER Height 160 cm (5' 3 ) 11/25/2017 10:37 AM METAL WELDER Body Mass Index 20.55 11/25/2017 10:37 AM METAL WELDER Plan of Treatment Health Maintenance Due Date Last Done Comments HPV VACCINES (2 - 2-dose series) 12/05/2014 06/07/20 14 HEPATITIS B VACCINES (1 of 3 - 19+ 3-dose series) 11/2018 CERVICAL CANCER SCREENING 2021 HPV/Cotest (21-29) 2021 PAP SMEAR 2021 DTAP/TDAP/TD VACCINES (2 - Td or Tdap) 01/24/2024 INFLUENZA VACCINE (#1) 2025 09/21/2017 Insurance [facility]LY [facility] PLAN OF [facility] FORMERLY [facility] PLAN OF [facility] Advance Directives For more information, please contact: [phone] * Full Code (Latest Code Status on File) Date Activated Date Inactivated Comments 11/26/2017 9:48 AM 11/26/2017 1:41 PM * Full Code Date Activated Date Inactivated Comments 11/26/2017 7:03 AM 11/26/2017 9:48 AM Care Teams Pattern Shop Supervisor Relationship Specialty Start Date End Date Maroila Feliciano MD [address] [place] [address] [place] [phone] PCP - General Pediatrics 05/18/13
--- OUTSIDE RECORDS SUMMARY | 2025-08-16 18:59 | XMS_ITS | Clinical Summary ---
Author Organization [facility] Address [address] [facility] Attn: [place] [address] Care Team Providers Care Card Room Manager Name Role Phone Mariola Feliciano MD Primary [...] on file Legal Sex Female 5:02 AM CUT OFF SAW OPERATOR PIPE BLANKS Gender Identity Not on file Sexual Orientation Not on file Last Filed Vital Signs Vital Sign Reading Time Taken Comments Blood Pressure 120/79 11/26/2017 10:20 AM CUT OFF SAW OPERATOR PIPE BLANKS Pulse 75 11/26/2017 10:35 AM CUT OFF SAW OPERATOR PIPE BLANKS Temperature 36.7 C (98.1 F) 11/26/2017 10:20 AM CUT OFF SAW OPERATOR PIPE BLANKS Respiratory Rate 22 11/26/2017 10:35 AM CUT OFF SAW OPERATOR PIPE BLANKS Oxygen Saturation - - Inhaled Oxygen Concentration - - Weight 52.6 kg (116 lb) 11/26/2017 6:36 AM CUT OFF SAW OPERATOR PIPE BLANKS Height 160 cm (5' 3 ) 11/25/2017 10:37 AM CUT OFF SAW OPERATOR PIPE BLANKS Body Mass Index 20.55 11/25/2017 10:37 AM CUT OFF SAW OPERATOR PIPE BLANKS Plan of Treatment Health Maintenance Due Date Last Done Comments HPV VACCINES (2 - 2-dose series) 12/05/2014 06/07/20 14 HEPATITIS B VACCINES (1 of 3 - 19+ 3-dose series) 11/2018 CERVICAL CANCER SCREENING 2021 HPV/Cotest (21-29) 2021 PAP SMEAR 2021 DTAP/TDAP/TD VACCINES (2 - Td or Tdap) 01/24/2024 INFLUENZA VACCINE (#1) 2025 09/21/2017 Care Teams Card Room Manager Relationship Specialty Start Date End Date Mariola Feliciano MD [address] [place] [phone] PCP - General Pediatrics 05/18/13
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
[2025-08-16 19:58] VITALS: PULSE 99; O2SAT 97
== END 2025-08-16 20:01 | disposition home or self-care (01) ==
PROVIDERS: Emergency Provider Emergency Medicine; PCP Family Medicine
DX: S09.90XA Unspecified injury of head, initial encounter (principal); V89.2XXA Person injured in unspecified motor-vehicle accident, traffic, initial encounter
CPT/HCPCS: 70450; 99284